=== PATIENT | male | born 1965 | race Caucasian/White ===

== ENCOUNTER → 2023-12-17 10:04 | Outpatient (BNVA) | payer SELFPAY | PROVIDERS: Visit Provider Registered Nurse Neonatal Intensive Care | DX: Z98.890 Other specified postprocedural states (principal); Z18.89 Other specified retained foreign body fragments; S62.114A Nondisplaced fracture of triquetrum [cuneiform] bone, right wrist, initial encounter for closed fracture; W19.XXXA Unspecified fall, initial encounter | CPT/HCPCS: 73110 ==